=== PATIENT | female | born 1995 | race American Indian/Alaskan Native ===

== ENCOUNTER 2023-06-27 14:45 | Outpatient (CLI) | payer BC, SELFPAY ==
--- NOTE | 2023-06-27 15:00 | CRLHL7_ITS ---
For Patients: As a result of the Cures Act, medical imaging exams and procedure reports are released immediately into your electronic medical record. You may view this report before your referring provider. If you have questions, please contact your health care provider. RIGHT BREAST ULTRASOUND CLINICAL HISTORY: RIGHT breast tenderness. COMPARISON: None. TECHNIQUE: Real-time ultrasound imaging of RIGHT breast with imaging documentation. FINDINGS: Hypoechoic collection of fluid within the medial RIGHT breast measuring 3.7 x 1.1 x 3.2 cm. This is located at 3 o`clock 7 cm from the nipple. No internal vascularity. Surrounding hyperemia. IMPRESSION: Fluid collection/abscess in the medial RIGHT breast measuring 3.7 x 1.1 x 3.2 cm. RECOMMENDATIONS: Dr. Mccain performed aspiration procedure following this exam. BI-RADS Category 2: Benign A lay language report of this examination will be provided to the patient. Dictated by Francisco J Childers MD @ 06/28/2023 9:37:12 AM j/Dictated by: Francisco J Childers MD @ 06/28/2023 9:30:00 AM (Electronically Signed)
== END 2023-06-27 14:46 | disposition home or self-care (01) ==
PROVIDERS: Visit Provider Physician Assistant
DX: N64.4 Mastodynia (principal); N61.1 Abscess of the breast and nipple
CPT/HCPCS: 76642; 76942; 87070

== ENCOUNTER 2023-07-18 10:57 | Outpatient (CLI) | payer BC, SELFPAY ==
--- OUTSIDE RECORDS SUMMARY | 2023-07-18 10:59 | XMS_ITS | Patient Health Record ---
Author Name Unknown Organization [facility] Address [address] [place] [address] Care Team Providers Care Horticultural Nursery Assistant Name Role Phone Mary Camacho Unavailable [phone] ALLERGIES No Known Allergies RESULTS Component Value Reference Range Notes Hemoglobin A1c Reviewed date:11/18/2022 10:40:40 AM Interpretation: Performing Lab: Notes/Report: A1c Hemoglobin 5.5 4.0 - 7.0 % Lipid Panel Reviewed date:11/18/2022 10:40:40 AM Interpretation: Performing Lab: Notes/Report: Cholesterol, Total 186 <200 - mg/dL HDL Cholesterol 49 LDL Cholesterol Calc 119 <100 - mg/dL Triglycerides 86 <150 - mg/dL nHDLc 136 <130 - mg/dL TC/H 3.8 2.8 - 6.6 VLDL Cholesterol Jak Basic Metabolic Panel Reviewed date:11/18/2022 10:40:40 AM Interpretation: Performing Lab: Notes/Report: Glucose, Serum 111 70 - 99 mg/dL BUN 10 10 - 26 mg/dL Calcium, Serum 9.3 8.5 - 10.5 mg/dL Creatinine, Serum 0.7 0.6 - 1.3 mg/dL Sodium, Serum 138 135 - 145 mEq/L Potassium, Serum 4.8 3.5 - 5.3 mEq/L Chloride, Serum 105 95 - 105 mEq/L Carbon Dioxide, Total 28 23 - 29 mEq/L BUN/Creatinine Ratio CBC (H/H, RBC, INDICES, WBC, PLT) Reviewed date:11/19/2022 07:11:34 AM Interpretation: Performing Lab:[facility], [facility] [id number] [id number] Vince Kessler Notes/Report: 0 WHITE BLOOD CELL COUNT 7.0 3.8-10.8 Thousand/ uL RED BLOOD CELL COUNT 4.29 3.80-5.10 Million/uL HEMOGLOBIN 13.4 11.7-15.5 g/dL HEMATOCRIT 38.9 35.0-45.0 % MCV 90.7 80.0-100.0 fL MCH 31.2 27.0-33.0 pg MCHC 34.4 32.0-36.0 g/dL RDW 12.0 11.0-15.0 % PLATELET COUNT 282 140-400 Thousand/uL MPV 11.1 7.5-12.5 fL NO COLLECTION DATE RECEIVED. WE HAVE USED THE DATE THE SPECIMEN WAS RECEIVED BY THIS LABORATORY THE COLLECTION DATE. IF THIS IS INCORRECT, PLEASE CONTACT CLIENT SERVICES. PHONE NUMBER: [phone] REASON FOR REFERRAL No Information SOCIAL HISTORY Tobacco Use: Social History Observation Description Date Details (start date - stop date) Never Smoker NA - NA Sex Assigned At : Social History Observation Description Sex Assigned At Unknown Tobacco Use/Smoking Question Answer Notes Are you a nonsmoker Alcohol Screen (Audit-C) Question Answer Notes Did you have a drink contain ing alcohol in the past year? Yes How often did you have a dri nk containing alcohol in the past year? 2 to 3 times a week (3 points) How many drinks did you have on a typical day when you were drinking in the past year? 3 or 4 drinks (1 point) How often did you have 6 or more drinks on one occasion in the past year? Never (0 point) Points 4 Interpretation Positive VITAL SIGNS Heart Rate 80 /min 11/18/2022 Temperature 97.7 degrees Fahrenheit 11/18/2022 Respiratory Rate 16 /min 11/18/2022 Oximetry 98 % 11/18/2022 Blood pressure diastolic 85 mm Hg 11/18/2022 Height 65 in 11/18/2022 Blood pressure systolic 127 mm Hg 11/18/2022 Weight 199.5 lbs 11/18/2022 BMI 33.19 kg/m2 11/18/2022 Encounters Encounter Location Date Provider Diagnosis [address] [place] [address] 11/18/2022 Mary Doug Encounter for examination for insurance purposes Z02.[address] [place] [address] 11/19/2022 Mary Doug ASSESSMENTS Encounter Date Diagnosis Assessment Notes Treatment Notes Treatment Clinical Notes 11/18/2022 Encounter for examination for insurance purposes (ICD-10 - Z02.6) Routine labs have been drawn today and reviewed with patient prior to leaving the office. CBC will be resulted tomorrow we will call her with those results. She has no health concerns today so I recommend that she follow-up in 1 year for her next [facility] wellness examination sooner if needed. PLAN OF TREATMENT No Information Insurance Providers Payer Name Payer Address Payer Phone Subscriber Number Group Number Insured Name Patient Relationship to Insured Coverage Start Date Coverage End Date [employer] [address] [address] [place] [id number] Helene [place] Self - patient is the insured MEDICAL (GENERAL) HISTORY Medical History History ICD Code Anxiety Surgical History Surgery Date(Month/Year) 09/2018
--- NOTE | 2023-07-18 11:15 | CRLHL7_ITS ---
For Patients: As a result of the Cures Act, medical imaging exams and procedure reports are released immediately into your electronic medical record. You may view this report before your referring provider. If you have questions, please contact your health care provider. RIGHT BREAST ULTRASOUND CLINICAL HISTORY: RIGHT breast abscess. COMPARISON: 06/27/2023. TECHNIQUE: Real-time ultrasound imaging of the RIGHT breast with imaging documentation. FINDINGS: Targeted sonogram RIGHT breast 3 o`clock 7 cm from the nipple performed. In this location there is a complex primarily hypoechoic fluid collection at mid depth measuring 4.6 x 1.4 x 3.3 cm, previously measuring 3.6 x 0.6 x 3.5 cm. No internal vascularity is present. IMPRESSION: Complex fluid collection RIGHT breast 3 o`clock 7 cm from the nipple, mildly increased in size compared to the prior study consistent with phlegmonous tissue/abscess. RECOMMENDATIONS: Surgical referral recommended. BI-RADS Category 2: Benign A lay language report of this examination will be provided to the patient. Dictated by Francisco J Childers MD @ 07/18/2023 12:01:14 PM /Dictated by: Francisco J Childers MD @ 07/18/2023 12:01:00 PM (Electronically Signed)
== END 2023-07-18 10:58 | disposition home or self-care (01) ==
PROVIDERS: Visit Provider Physician Assistant
DX: N61.1 Abscess of the breast and nipple (principal)
CPT/HCPCS: 76642

== ENCOUNTER 2023-07-20 16:00 | Outpatient (CLI) | payer BC, SELFPAY | END 2023-07-20 16:01 | disposition home or self-care (01) | LOC: FRMREF 16:01 | PROVIDERS: Visit Provider Surgery | DX: N61.1 Abscess of the breast and nipple (principal) | CPT/HCPCS: 87070; 87077 ==

== ENCOUNTER 2023-10-27 08:34 | Outpatient (CLI) | payer BC, SELFPAY ==
--- NOTE | 2023-10-27 08:45 | MM_ITS ---
Patient: SWETHA TOBIN Facility:?[facility] Patient ID:?[id number] Site Patient ID:?[id number] Site :?1995 Study:?XRay-Breast Right 3D W/CAD-10/27/2023 9:24:08 AM Ordering Physician:?Not A Local Final Report: DIGITAL DIAGNOSTIC RIGHT MAMMOGRAM USING TOMOSYNTHESIS AND COMPUTER-AIDED DETECTION RIGHT BREAST ULTRASOUND CLINICAL HISTORY: RIGHT breast lump. COMPARISON: Ultrasound 07/18/2023, 06/27/2023. TECHNIQUE: Digital RIGHT mammogram in two projections. Real-time ultrasound imaging of RIGHT breast with imaging documentation. Scanning was performed by both the technologist and the radiologist. BREAST COMPOSITION: The breast is extremely dense, which may limit the sensitivity of mammography. FINDINGS: 3D CC/MLO RIGHT breast mammogram images submitted. Lobular density is present within the medial RIGHT breast corresponding to the area prior infection. No architectural distortion or suspicious calcifications. No adenopathy. Targeted RIGHT breast ultrasound performed. At 3 o`clock 7 cm from the nipple there is a complex hypoechoic fluid collection extending to the skin surface with associated epidermal thickening. This measures 3.6 x 2.6 x 2.9 cm. IMPRESSION: RIGHT breast abscess measuring 3.6 x 2.6 x 2.9 cm extending to the skin surface. RECOMMENDATIONS: Ultrasound-guided drainage will be performed subsequently. Results and recommendations discussed with the patient. BI-RADS Category 2: Benign A lay language report of this examination will be provided to the patient. Dictated by Francisco J Childers MD @ 10/27/2023 10:34:00 AM jj/Dictated by: Francisco J Childers MD @ 10/27/2023 10:34:00 AM Signed by:?Francisco J Childers MD @10/27/2023 12:03:00 PM (Electronic Signature)
--- NOTE | 2023-10-27 09:15 | US_ITS ---
Patient: SWETHA TOBIN Facility:?[facility] Patient ID:?[id number] Site Patient ID:?[id number] Site :?1995 Study:?US-Breast Procedure DR CHILDERS TO READ-10/27/2023 10:04:14 AM Ordering Physician:?VETO HUGGINS Final Report: ULTRASOUND-GUIDED RIGHT BREAST ABSCESS DRAINAGE CLINICAL HISTORY: RIGHT breast abscess. COMPARISON STUDIES: 10/27/2023. TECHNIQUE: Real-time ultrasound with image documentation was used for targeting the breast lesion. Ultrasound-guided abscess aspiration occurred with an 18-gauge needle. CONSENT and TIME OUT: The procedure, risks, and alternatives were explained to the patient and a consent was signed. [place] Protocol was followed including pre-procedure verification that relevant information/documentation was available, reviewed and properly matched to the patient; consent accurate and complete; and equipment and supplies available. Time Out was conducted just prior to starting procedure to verify the four required elements: patient identity, correct side/site marked (if applicable), procedure, relevant images/results properly labeled and displayed (if applicable). PROCEDURE: The patient was positioned supine on the ultrasound table. The breast was prepped with ChloraPrep. 5 cc of 1 percent lidocaine was used for local anesthesia. 12 cc of pus was aspirated from the abscess. No complications occurred. Samples sent to the lab for Gram stain and culture. LATERALITY: RIGHT breast. LESION: Hypoechoic lobular circumscribed fluid collection extending to the epidermal layer measuring 3.6 x 2.9 x 2.7 cm at 3 o`clock 7 cm from the nipple. IMPRESSION: Ultrasound-guided abscess drainage. ACR not applicable Dictated by Francisco J Childers MD @ 10/28/2023 10:35:17 AM jj/Dictated by: Francisco J Childers MD @ 10/28/2023 10:35:00 AM Signed by:?Francisco J Childers MD @10/28/2023 12:16:44 PM (Electronic Signature)
--- NOTE | 2023-10-27 09:15 | US_ITS ---
Patient: SWETHA TOBIN Facility:?[facility] Patient ID:?[id number] Site Patient ID:?[id number] Site :?1995 Study:?US-Breast Right Dr. Childers to read-10/27/2023 9:59:19 AM Ordering Physician:NEY Final Report: PLEASE SEE DIGITAL DIAGNOSTIC RIGHT MAMMOGRAM PERFORMED SAME DAY CRL:pedro vasquez/Dictated by: Francisco J Childers MD @ 10/27/2023 10:34:00 AM Signed by:?Francisco J Childers MD @10/27/2023 12:02:47 PM (Electronic Signature)
== END 2023-10-27 08:35 | disposition home or self-care (01) ==
PROVIDERS: Visit Provider Physician Assistant
DX: N63.10 Unspecified lump in the right breast, unspecified quadrant (principal); N61.1 Abscess of the breast and nipple; L02.91 Cutaneous abscess, unspecified
CPT/HCPCS: 19000; 76642; 76942; 77065; 87070; 87075; 87205; G0279

== ENCOUNTER 2024-04-19 10:56 | Outpatient (CLI) | payer BC, SELFPAY ==
--- OUTSIDE RECORDS SUMMARY | 2024-04-19 11:01 | XMS_ITS | Encounter Summary ---
Author Organization [facility] Address [address] [place] [address] Care Team Providers Care Customer Care Consultant Name Role Phone [facility]- Primary Care Provider Reason for Referral * Consultation (Routine: Next available opening) - Pending Review Specialty Diagnoses / Procedures Referred By Contmoose t Referred To Contact Diagnoses Seizure (H) Mis Chow DO [facility] [place] [address] [facility] [place] [address] Referral ID Status Reason Start Date Expiration Date V isits Requested Visits Authorized [id number] Pending Review 02/25/2024 02/24/2025 1 1 Question Answer Reason for Referral: General Neurology Scheduling Instructions: [facility] will call you to coordinate your care as prescribed by your provider. If you don't hear from a patient relations representative within 2 business days, please call . Comments Please be aware that coverage of these services is subject to the terms and limitations of your health insurance plan. Call member services at your health plan with any benefit or coverage questions. [facility] will call you to coordinate your care as prescribed by your provider. If you don't hear from a patient relations representative within 2 business days, please call . Reason for Visit * Reason Comments Seizures Encounter Details Date Type Department Care Team (Late st Contact Info) Description 02/25/2024 9:42 PM CDT - 02/26/2024 12:01 AM CDT Emergency [facility] Emergency Dept [address] [place] [address] Mis Chow E, DO [facility] [place] [address] [place] [id number] Seizure (H); Alcoholic intoxication without complication (H24); Hypokalemia Discharge Disposition: Home or Self Care Social History Tobacco Use Types Packs/Day Years Used Date Smoking Tobacco: Never Smokeless Tobacco: Never Alcohol Use Standard Drinks/Week Comments Yes 0 (1 standard drink = 0.6 oz pur e alcohol) Adolescent Education Answer Date Record ed Getting School Help Needed Not on file 02/24 Sex and Gender Information Value Date Recorded Sex Assigned at Not on file Gender Identity Not on file Sexual Orientation Not on file documented as of this encounter Last Filed Vital Signs Vital Sign Reading Time Taken Comments Blood Pressure 112/58 02/25/2024 11:40 PM CDT Pulse 84 02/25/2024 11:40 PM CDT Temperature 36.8 ??C (98.3 ??F) 02/25/2024 10:00 PM C DT Respiratory Rate 19 02/25/2024 9:58 PM CDT Oxygen Saturation 97% 02/25/2024 9:58 PM CDT Inhaled Oxygen Concentration - - Weight 83.9 kg (185 lb) 02/25/2024 9:47 PM CDT Height 162.6 cm (5' 4) 02/25/2024 9:47 PM CDT Body Mass Index 31.76 02/25/2024 9:47 PM CDT documented in this encounter Discharge Instructions * Attachments The following attachments cannot be sent through Care Everywhere. * Seizure ([place]) documented in this encounter Medications at Time of Discharge Medication Sig Dispensed Refills Start Date End Date glycerin (LAXATIVE) 1.[address] 1 suppository rectally daily 1 suppository 10/07/2018 ibuprofen (ADVIL/MOTRIN) 800 MG tablet Take 800 mg by mouth 10/05/2018 Nitrofurantoin Macrocrystal (MACRODANTIN PO) oxybutynin (DITROPAN) 5 MG tablet Take 1 tablet (5 mg) by mouth 3 times daily as needed (bladder spasms/urgency) 9 tablet 0 03/04/2016 oxyCODONE (ROXICODONE) 5 MG tablet Take 5-10 mg by mouth 10/05/2018 senna-docusate (SENOKOT-S/PERICOLACE ) 8.6-50 MG tablet Take 1 tablet by mouth 10/05/2018 documented as of this encounter ED Notes * Cayla Wong RN - 02/25/2024 9:48 PM CDT Brought in by EMS. Was out with friends for dinner. Had 30 seconds of seizure like activity with LOC. Vomited after. Had 2 drinks at dinner and endorses cannabis use earlier in the day. Denies pain. VSS. No head injury. No hx seizures. * Monty Allen RN - 02/25/2024 9:42 PM CDT Bed: ED14 Expected date: Expected time: Means of arrival: Comments: BV4 * Mis Chow DO - 02/25/2024 9:42 PM CDT Emergency Department Note History of Present Illness Chief Complaint Seizures HPI Helene Mullins is a 28 year old female presenting with concerns for a seizure. Patient reports having a girls night this evening and had 2 beers at dinner around 5PM. She reports feeling lightheaded after dinner and then friends noted she had roughly a 30 second tonic clonic seizure. No head trauma. No bladder/bowel incontinence or tongue lacerations. She was post-ictal for a few minutes after this episode and had an episode of emesis. No headache, vision changes, chest pain, dyspnea, abdominal pain, focal weakness, paresthesias. Patient denies history of seizures. No drug use. She reports history of 2 alcoholic beverages daily though denies history alcohol withdrawal. Mother at bedsidedenies patient being confused. Patient admits to significant anxiety at bedside and is quite tearful. Independent Historian None Review of External Notes None Past Medical History Medical History and Problem List UTI Medications Glycerin Macrodantin Ditropan Roxicodone Senokot Vicodin Surgical History section Nasal septum surgery Physical Exam Patient Vitals for the past 24 hrs: BP Temp Temp src Pulse Resp SpO2 Height Weight 02/25/24 2340 112/58 -- -- 84 -- -- -- -- 02/25/24 2200 -- 98.3 ??F (36.8 ??C) Axillary -- -- -- -- -- 02/25/24 2158 -- -- -- 90 19 97 % -- -- 02/25/24 2147 123/85 -- -- 87 24 -- 1.626 m (5' 4) 83.9 kg (185 lb) Physical Exam General: Well-nourished, nontoxic Eyes: PERRL, EOMI, no nystagmus. No scleral icterus or conjunctival injection. ENT: Moist mucus membranes, posterior oropharynx clear. No tongue lacerations Neck: Supple with full range of motion Respiratory: Lungs clear to auscultation bilaterally, no crackles/rubs/wheezes. Good air movement CV: Normal rate and rhythm GI: Abdomen soft and non-distended. No tenderness, guarding or rebound Skin: Warm, dry. No rashes or petechiae MSK: No peripheral edema or calf tenderness Neuro: Alert. No aphasia/facial droop/dysarthria. Tongue midline, normal strength at SCM/trapezius/BUE/BLE. Normal finger to nose. Sensation intact over face/BUE/BLE Psychiatric: Anxious appearing Diagnostics Lab Results Labs Ordered and Resulted from Time of ED Arrival to Time of ED Departure COMPREHENSIVE METABOLIC PANEL - Abnormal Result Value Sodium 137 Potassium 3.3 (*) Carbon Dioxide (CO2) 21 (*) Anion Gap 14 Urea Nitrogen 8.3 Creatinine 0.91 GFR Estimate 87 Calcium 8.6 (*) Chloride 102 Glucose 107 (*) Alkaline Phosphatase 76 AST 40 ALT 43 Protein Total 6.8 Albumin 4.0 Bilirubin Total 0.2 ETHYL ALCOHOL LEVEL - Abnormal Alcohol ethyl 0.11 (*) GLUCOSE BY METER - Abnormal GLUCOSE BY METER POCT 133 (*) HCG QUALITATIVE - Normal hCG Serum Qualitative Negative CBC WITH PLATELETS AND DIFFERENTIAL WBC Count 8.0 RBC Count 3.83 Hemoglobin 11.8 Hematocrit 35.5 MCV 93 MCH 30.8 MCHC 33.2 RDW 12.2 Platelet Count 247 % Neutrophils 52 % Lymphocytes 36 % Monocytes 8 % Eosinophils 3 % Basophils 1 % Immature Granulocytes 1 NRBCs per 100 WBC 0 Absolute Neutrophils 4.2 Absolute Lymphocytes 2.9 Absolute Monocytes 0.7 Absolute Eosinophils 0.2 Absolute Basophils 0.0 Absolute Immature Granulocytes 0.0 Absolute NRBCs 0.[address] w/o contrast Final Result IMPRESSION: 1. Normal head CT. EKG ECG taken at 2208, ECG read at 2208 Normal sinus rhythm Rate 93 bpm. OK interval 148 ms. QRS duration 82 ms. QT/QTc 380/472 ms. P-R-T axes 48 73 39. Independent Interpretation I independently reviewed the head CT and no intracranial hemorrhage ED Course Medications Administered Medications ondansetron (ZOFRAN) injection 4 mg (4 mg Intravenous $Given 02/25/242237) LORazepam (ATIVAN) injection 0.5 mg (0.5 mg Intravenous $Given 02/25/242226) potassium chloride brenda ER (KLOR-CON M20) CR tablet 40 mEq (40 mEq Oral $Given 02/25/244) Discussion of Management None ED Course ED Course as of 02/26/24 0712 Sat Feb 25, [id number] I obtained history and examined the patient as noted above. 2349 I rechecked and updated the patient. Optional/Additional Documentation None Medical Decision Making / Diagnosis [facility] Diagnoses: None MIPS None MDM Helene Mullins is a 28 year old female for seizure. ABCs were intact on presentation and there was no sign of trauma and no need for c-spine precautions based on history and presentation. No focal neuro deficits on arrival. This is a first time seizure with complete recovery and no abnormal findings on workup. CT head negative. No profound electrolyte derangements. She is not . Unfortunately a clear exam and results today do not ensure freedom from a severe disease process in the future-- even within hours, orthe possibility that there is a dangerous process currently at work but currently undetected or undiagnosed, this was clearly conveyed to the patient/family. For this reason the patient is advised toseek immediate re-evaluation in the the ED if there is a worsening of their condition such as headache, altered mental status, or another seizure, and to followup with PCP. Neurology referral placed. Disposition The patient was discharged. Diagnosis ICD-10-CM 1. Seizure (H) R56.9 Adult Neurology Paper Coater Referral 2. Alcoholic intoxication without complication (H24) F10.920 3. Hypokalemia E87.6 Discharge Medications New Prescriptions No medications on file Scribe Disclosure: LEWIS Macias, am serving as a scribe at 10:26 PM on 02/25/2024 to document services personally performed by Mis Chow DO based on my observations and the provider's statements to me. Mis Chow DO 02/26/24 0715 documented in this encounter Plan of Treatment Scheduled Referrals Name Type Priority Associated Diagnoses Orde r Schedule Adult Neurology Paper Coater Referral Referral Routine: Next available opening Seizure (H) Expected: 02/25/2024 (Approximate), Expires: 02/24/2025 documented as of this encounter Procedures Procedure Name Priority Date/Time Associated Diagnosis Comments CT HEAD W/O CONTRAST STAT 02/25/2024 11:21 PM CDT HCG QUALITATIVE STAT 02/25/2024 10:40 PM CDT GLUCOSE BY METER STAT 02/25/2024 10:1 4 PM CDT EKG 12-LEAD, TRACING ONLY STAT 02/25/2024 10:08 PM CDT CBC WITH PLATELETS AND DIFFERENTIAL STAT 02/25/2024 10:03 PM CDT CBC WITH PLATELETS & DIFFERENTIAL STAT 02/25/2024 10:03 PM CDT COMPREHENSIVE METABOLIC PANEL STAT 02/25/2024 10:03 PM CDT ETHYL ALCOHOL LEVEL STAT 02/25/2024 1 0:03 PM CDT documented in this encounter Results * Head CT w/o contrast (02/25/2024 11:21 PM CDT) Anatomical Region Laterality Modality Head, SUBRAD CT NEURO, SUBRA D CT NEURO, UMP CT NEURO, RAD CT Computed Tomography 02/25/2024 11:2 1 PM CDT Impressions 02/25/2024 11:29 PM CDT IMPRESSION: 1. ??Normal head CT. Narrative 02/25/2024 11:29 PM CDT EXAM: CT HEAD W/O CONTRAST LOCATION: [facility] DATE: 02/25/2024 INDICATION: Seizure. COMPARISON: None. TECHNIQUE: Routine CT Head without IV contrast. Multiplanar reformats. Dose reduction techniques were used. FINDINGS: INTRACRANIAL CONTENTS: No intracranial hemorrhage, extraaxial collection, or mass effect. ??No CT evidence of acute infarct. Normal parenchymal attenuation. Normal ventricles and sulci. VISUALIZED ORBITS/SINUSES/MASTOIDS: No intraorbital abnormality. No paranasal sinus mucosal disease. No middle ear or mastoid effusion. BONES/SOFT TISSUES: No acute abnormality. Procedure Note Chun Jung MD - 02/25/2024 EXAM: CT HEAD W/O CONTRAST LOCATION: [facility] DATE: 02/25/2024 INDICATION: Seizure. COMPARISON: None. TECHNIQUE: Routine CT Head without IV contrast. Multiplanar reformats.Dose reduction techniques were used. FINDINGS: INTRACRANIAL CONTENTS: No intracranial hemorrhage, extraaxial collection,or mass effect. No CT evidence of acute infarct. Normal parenchymalattenuation. Normal ventricles and sulci. VISUALIZED ORBITS/SINUSES/MASTOIDS: No intraorbital abnormality. Noparanasal sinus mucosal disease. No middle ear or mastoid effusion. BONES/SOFT TISSUES: No acute abnormality. IMPRESSION: 1. Normal head CT. Mis Chow DO [facility] CT ORDERABLES * HCG QUALitative (blood) (02/25/2024 10:40 PM CDT) hCG Serum Qualitative Negative Negative EDNA 02/25/2024 11:21 PM CDT [facility] Comment:This test is for scr eening purposes. Results should be interpreted along with the clinical picture. Confirmation testing is available if warranted by ordering [id number], HCG Quantitative . Blood VENOUS LINE / Unknown Venipuncture / Unknown 02/25/2024 10:40 PM CDT 02/25/2024 10:44 PM CDT Mis Chow DO LAB - BLOOD ORDERA BLES [facility] Emergency Department Lab [address] Lab (1st floor, no room number) [place] [phone] * (ABNORMAL) Glucose by meter (02/25/2024 10:14 PM CDT) GLUCOSE BY METER POCT 133(H) 70 - 99 mg/dL 02/25/2024 10:21 PM CDT LABORATORY POC Comment:Dr/RN Notified Blood, Capillary BLOOD SPECIMEN / Unknown 02/25/2024 10:14 PM CDT 02/25/2024 10:21 PM CDT Mis Chow DO LAB - BEAKER POCT Performing Organization Address [facility]/ZIP Co de Phone Number LABORATORY POC [facility] Lab [address] Lab (1st floor, no room number) [place] [phone] * EKG 12-lead, tracing only (02/25/2024 10:08 PM CDT) Systolic Blood Pressure mmHg RADIOLOGY RESULTS Diastolic Blood Pressure mmHg RADIOLOGY RESULTS Ventricular Rate 93 BPM RAD IOLOGY RESULTS Atrial Rate 93 BPM RADIOLOG Y RESULTS OK Interval 148 ms RADIOLOG Y RESULTS QRS Duration 82 ms RADIOLO GY RESULTS QT 380 ms RADIOLOGY RESULTS QTc 472 ms RADIOLOGY RESULTS P Forman 48 degrees RADIOLOGY RESULTS R AXIS 73 degrees RADIOLOGY RESULTS T Forman 39 degrees RADIOLOGY RESULTS Interpretation ECG Sinus rhythm Normal ECG No previous ECGs available RADIOLOGY RESULTS 02/25/2024 10:0 8 PM CDT Mis Chow DO ECG ORDERABLES RADIOLOGY RESULTS * CBC with platelets and differential (02/25/2024 10:03 PM CDT) WBC Count 8.0 4.0 - 11.0 10e3/uL 02/25/2024 10:12 PM CDT [facility] RBC Count 3.83 3.80 - 5.20 10e6/uL 02/25/2024 10:12 PM CDT [facility] Hemoglobin 11.8 11.7 - 15.7 g/dL 02/25/2024 10:12 PM CDT [facility] Hematocrit 35.5 35.0 - 47.0 % 02/25/2024 10:12 PM CDT [facility] MCV 93 78 - 100 fL 02/25/2024 10:12 PM CDT [facility] MCH 30.8 26.5 - 33.0 pg 02/25/2024 10:12 PM CDT [facility] MCHC 33.2 31.5 - 36.5 g/dL 02/25/2024 10:12 PM CDT [facility] RDW 12.2 10.0 - 15.0 % 02/25/2024 10:12 PM CDT [facility] Platelet Count 247 150 - 450 10e3/uL 02/25/2024 10:12 PM CDT [facility] % Neutrophils 52 % 02/25/2024 10:12 PM CDT [facility] % Lymphocytes 36 % 02/25/2024 10:12 PM CDT [facility] % Monocytes 8 % 02/25/2024 10:12 PM CDT [facility] % Eosinophils 3 % 02/25/2024 10:12 PM CDT [facility] % Basophils 1 % 02/25/2024 10:12 PM CDT [facility] % Immature Granulocytes 1 % 02/25/2024 10:12 PM CDT [facility] NRBCs per 100 WBC 0 <1 /100 024 10:12 PM CDT [facility] Absolute Neutrophils 4.2 1.6 - 8.3 10e3/uL 02/25/2024 10:12 PM CDT [facility] Absolute Lymphocytes 2.9 0.8 - 5.3 10e3/uL 02/25/2024 10:12 PM CDT [facility] Absolute Monocytes 0.7 0.0 - 1.3 10e3/uL 02/25/2024 10:12 PM CDT [facility] Absolute Eosinophils 0.2 0.0 - 0.7 10e3/uL 02/25/2024 10:12 PM CDT [facility] Absolute Basophils 0.0 0.0 - 0.2 10e3/uL 02/25/2024 10:12 PM CDT [facility] Absolute Immature Granulocytes 0.0 <=0.4 10e3/uL 02/25/2024 10:12 PM CDT [facility] Absolute NRBCs 0.0 10e3/uL 02/25/2024 10:12 PM CDT [facility] Blood BLOOD SPECIMEN / Unknown Venipuncture / Unknown 02/25/2024 10:03 PM CDT 02/25/2024 10:08 PM CDT Mis Chow DO LAB - BLOOD ORDERA BLES LABORAT[facility] Lab [address] Lab (1st floor, no room number) [address] * (ABNORMAL) Alcohol level blood (02/25/2024 10:03 PM CDT) Alcohol ethyl 0.11(H) <=0.01 g/dL 02/25/2024 10:38 PM CDT [facility] Blood BLOOD SPECIMEN / Unknown Venipuncture / Unknown 02/25/2024 10:03 PM CDT 02/25/2024 10:08 PM CDT Mis Chow DO LAB - BLOOD ORDERA BLES LAB[facility]AT[facility] Lab [address] Lab (1st floor, no room number) [address] * (ABNORMAL) Comprehensive metabolic panel (02/25/2024 10:03 PM CDT) Sodium 137 135 - 145 mmol/L 02/25/2024 10:38 PM CDT LABORATORY Potassium 3.3(L) 3.4 - 5.3 mmol/L 02/25/2024 10:38 PM CDT [facility] Carbon Dioxide (CO2) 21(L) 22 - 29 mmol/L 02/25/2024 10:38 PM CDT [facility] Anion Gap 14 7 - 15 mmol/L 02/25/2024 10:38 PM CDT LABORATORY Urea Nitrogen 8.3 6.0 - 20.0 mg/dL 02/25/2024 10:38 PM CDT [facility] Creatinine 0.91 0.51 - 0.95 mg/dL 02/25/2024 10:38 PM CDT [facility] GFR Estimate 87 >60 mL/min/1.7 3m2 02/25/2024 10:38 PM CDT [facility] Comment:eGFR calculated us2020 CKD-EPI equation. Calcium 8.6(L) 8.8 - 10.4 mg/dL 02/25/2024 10:38 PM CDT [facility] Comment:Reference intervals for this test were updated on 02/21/2024 to reflect our healthy population more accurately. There may be differences in the flagging of prior results with similar values performed with this method. Those prior results can be interpreted in the context of the updated reference intervals. Chloride 102 98 - 107 mmol/L 02/25/2024 10:38 PM CDT [facility] Glucose 107(H) 70 - 99 mg/dL 02/25/2024 10:38 PM CDT [facility] Alkaline Phosphatase 76 40 - 150 U/L 02/25/2024 10:38 PM CDT [facility] AST 40 0 - 45 U/L 02/25/2024 10:38 PM CDT [facility] ALT 43 0 - 50 U/L 02/25/2024 10:38 PM CDT [facility] Protein Total 6.8 6.4 - 8.3 g/dL 02/25/2024 10:38 PM CDT [facility] Albumin 4.0 3.5 - 5.2 g/dL 02/25/2024 10:38 PM CDT [facility] Bilirubin Total 0.2 <=1.2 mg/dL 02/25/2024 10:38 PM CDT [facility] Blood BLOOD SPECIMEN / Unknown Venipuncture / Unknown 02/25/2024 10:03 PM CDT 02/25/2024 10:08 PM CDT Mis Chow DO LAB - BLOOD ORDERA BLES [facility] Lab [address] Lab (1st floor, no room number) [place] [address], [facility] documented in this encounter Visit Diagnoses Diagnosis Seizure (H) Other convulsions Alcoholic intoxication without complication (H24) Hypokalemia Hypopotassemia documented in this encounter Administered Medications Inactive Administered Medications - up to 3 most recent administrations Medication Order MAR Action Action Date Dose Rate Site LORazepam (ATIVAN) injection 0.5 mg 0.5 mg, Intravenous, ONCE, On 02/25/24 at 2220, For 1 dose, IV Route: Dilute with equal volume NS prior to use. This drug may cause significant respiratory depression. Monitor respiratory status and vital signs carefully for 1 hour after each dose. $Given 02/25/2024 10:27 PM CDT 0.5 mg ondansetron (ZOFRAN) injection 4 mg 4 mg, Intravenous, ONCE, Administer over 2-5 Minutes, On 02/25/24 at 2220, For 1 dose $Given 02/25/2024 10:38 PM CDT 4 mg potassium chloride brenda ER (KLOR-CON M20) CR tablet 40 mEq 40 mEq, Oral, ONCE, On 02/25/24 at 2340, For 1 dose, DO NOT CRUSH $Given 02/25/2024 11:44 PM CDT 40 mEq documented in this encounter Active and Recently Administered Medications Times are shown in CDT. Scheduled Medication Order 02/24/2024 02/25/2024 02/26/2024 LORazepam (ATIVAN) injection 0.5 mg (COMPLETED) 0.5 mg, Intravenous, ONCE, On 02/25/24 at 2220, For 1 dose, IV Route: Dilute with equal volume NS prior to use. This drug may cause significant respiratory depression. Monitor respiratory status and vital signs carefully for 1 hour after each dose. 2226 ($Given - Provider: Jeanna Wong RN) ondansetron (ZOFRAN) injection 4 mg (COMPLETED) 4 mg, Intravenous, ONCE, Administer over 2-5 Minutes, On 02/25/24 at 2220, For 1 dose 2237 ($Given - Provider: Jeanna Wong RN) potassium chloride brenda ER (KLOR-CON M20) CR tablet 40 mEq (COMPLETED) 40 mEq, Oral, ONCE, On 02/25/24 at 2340, For 1 dose, DO NOT CRUSH 2343 ($Given - Provider: Jeanna Wong RN) documented in this encounter Care Teams Customer Care Consultant Relationship Specialty Start Date End Date [facility] [address] [place] [address] PCP - General 10/07/18 documented as of this encounter
--- OUTSIDE RECORDS SUMMARY | 2024-04-19 11:01 | XMS_ITS | Referral Summary ---
Author Organization [facility] Address [address] [place] [address] Care Team Providers Care Property Appraiser Name Role Phone [facility]- Primary Care Provider Encounters Date Type Department Care Team Description 02/25/2024 9:42 PM CDT - 02/26/2024 12:01 AM CDT Emergency [facility] Emergency Dept [address] [place] [address] Mis Chow, Seizure (H); Alcoholic intoxication without complication (H24); Hypokalemia Discharge Disposition: Home or Self Care 02/25/2024 Travel from Last 3 Months Allergies Active Allergy Reactions Criticality Noted Date Comments No Known Drug Allergy 05/28/2002 Medications Medication Sig Dispensed Refills Start Date End Date Status Nitrofurantoin Macrocrystal (MACRODANTIN PO) Active oxybutynin (DITROPAN) 5 MG tablet Take 1 tablet (5 mg) by mouth 3 times daily as needed (bladder spasms/urgency) 9 tablet 0 03/04/2016 Active ibuprofen (ADVIL/MOTRIN) 800 MG tablet Take 800 mg by mouth 10/05/2018 Active oxyCODONE (ROXICODONE) 5 MG tablet Take 5-10 mg by mouth 10/05/2018 Active senna-docusate (SENOKOT-S/PERICOL PAZ) 8.6-50 MG tablet Take 1 tablet by mouth 10/05/2018 Active glycerin (LAXATIVE) 1.[address] 1 suppository rectally daily 1 suppository 10/07/2018 Active Active Problems Problem Noted Date Diagnosed Date 09/30/2018 Immunizations Name Administration Dates Next Due DTAP (<7y) 02/19/1999,02/16/1995 HIB (PRP-T) 11/25/1994 HepB 05/14/1994,1993,1993 Influenza (IIV3) PF 05/10/1997 MMR 02/19/1999,11/25/1994 OPV, trivalent, live 02/19/1999,02/16/1995,12/15,1993 Tetramune (DtP/HIB) 02/11/1994,1993,1993 Varicella 08/23/1995 Social History Tobacco Use Types Packs/Day Years [...] on file Sexual Orientation Not on file Last Filed Vital Signs Vital Sign Reading [...] Mass Index 31.76 02/25/2024 9:47 PM CDT Plan of Treatment Not on file Procedures Procedure Name Priority Date/Time Associated Diagnosis Comments CT HEAD W/O CONTRAST STAT 02/25/2024 11:21 PM CDT HCG QUALITATIVE STAT 02/25/2024 10:40 PM CDT GLUCOSE BY METER STAT 02/25/2024 10:1 4 PM CDT EKG 12-LEAD, TRACING ONLY STAT 02/25/2024 10:08 PM CDT CBC WITH PLATELETS & DIFFERENTIAL STAT 02/25/2024 10:03 PM CDT CBC WITH PLATELETS AND DIFFERENTIAL STAT 02/25/2024 10:03 PM CDT ETHYL ALCOHOL LEVEL STAT 02/25/2024 1 0:03 PM CDT COMPREHENSIVE METABOLIC PANEL STAT 02/25/2024 10:03 PM CDT from Last 3 Months Results * Head CT w/o contrast (02/25/2024 11:21 PM CDT) Anatomical Region Laterality Modality Head, SUBRAD CT NEURO, SUBRA D CT NEURO, UMP CT NEURO, RAD CT Computed Tomography 02/25/2024 11:2 1 PM CDT Impressions 02/25/2024 11:29 PM CDT IMPRESSION: 1. ??Normal head CT. Narrative 02/25/2024 11:29 PM CDT EXAM: CT HEAD W/O CONTRAST LOCATION: [facility] DATE: 02/25/2024 INDICATION: Seizure. COMPARISON: None. TECHNIQUE: [...] 02/25/2024 EXAM: CT HEAD W/O CONTRAST LOCATION: [facility] DATE: 02/25/2024 INDICATION: Seizure. COMPARISON: None. TECHNIQUE: [...] 1. Normal head CT. Mis Chow DO IMG CT ORDERABLES * HCG QUALitative (blood) (02/25/2024 10:40 PM CDT) hCG Serum Qualitative Negative Negative EDNA 02/25/2024 11:21 PM CDT LABORATORY Comment:This test is for scr eening purposes. Results should be interpreted along with the clinical picture. Confirmation testing is available if warranted by ordering [id number], HCG Quantitative . Blood VENOUS LINE / Unknown Venipuncture / Unknown 02/25/2024 10:40 PM CDT 02/25/2024 10:44 PM CDT Mis Chow DO LAB - BLOOD ORDERA BLES Performing Organization Address City/[facility]/ZIP Co de Phone Number [facility] Lab [address] Lab (1st floor, no room number) [address], [facility] * (ABNORMAL) Glucose by meter (02/25/2024 10:14 PM CDT) GLUCOSE BY METER POCT 133(H) 70 - 99 mg/dL 02/25/2024 10:21 PM CDT LABORATORY POC Comment:Dr/RN Notified Blood, Capillary BLOOD SPECIMEN / Unknown 02/25/2024 10:14 PM CDT 02/25/2024 10:21 PM CDT Mis Chow DO LAB - BEAKER POCT LABORATORY [facility] Lab [address] Lab (1st floor, no room number) [place] [phone] [place] [address] * EKG 12-lead, tracing only (02/25/2024 10:08 PM CDT) Systolic Blood Pressure mmHg RADIOLOGY RESULTS Diastolic Blood Pressure mmHg RADIOLOGY RESULTS Ventricular Rate 93 BPM RAD IOLOGY RESULTS Atrial Rate 93 BPM RADIOLOG Y RESULTS DC Interval 148 ms RADIOLOG Y RESULTS QRS Duration 82 ms RADIOLO GY RESULTS QT 380 ms RADIOLOGY RESULTS QTc 472 ms RADIOLOGY RESULTS P [place] 48 degrees RADIOLOGY RESULTS R AXIS 73 degrees RADIOLOGY RESULTS T [place] 39 degrees RADIOLOGY RESULTS Interpretation ECG Sinus [...] DO LAB - BLOOD ORDERA BLES LABORATORY [facility] Lab [address] [facility] Lab (1st floor, no room number) [place] [address], [facility] * (ABNORMAL) Comprehensive metabolic panel (02/25/2024 10:03 PM CDT) Sodium 137 135 - 145 mmol/L 02/25/2024 10:38 PM CDT RH LABORATORY Potassium 3.3(L) 3.4 - 5.3 mmol/L 02/25/2024 10:38 PM CDT LABORATORY Carbon Dioxide (CO2) 21(L) 22 - 29 mmol/L 02/25/2024 10:38 PM CDT LABORATORY Anion Gap 14 7 - 15 mmol/L 02/25/2024 10:38 PM CDT RH LABORATORY Urea Nitrogen 8.3 6.0 - 20.0 [...] - 5.2 g/dL 02/25/2024 10:38 PM CDT LABORATORY Bilirubin Total 0.2 <=1.2 mg/dL 02/25/2024 10:38 PM CDT RH LABORATORY Blood BLOOD SPECIMEN / Unknown Venipuncture / Unknown 02/25/2024 10:03 PM CDT 02/25/2024 10:08 PM CDT Mis Chow DO LAB - BLOOD ORDERA BLES LABORATORY [facility] Lab [address] [facility] Lab (1st floor, no room number) [place] [address] * (ABNORMAL) Alcohol level blood (02/25/2024 10:03 PM CDT) Alcohol ethyl 0.11(H) <=0.01 g/dL 02/25/2024 10:38 PM CDT RH LABORATORY Blood BLOOD SPECIMEN / Unknown Venipuncture / Unknown 02/25/2024 10:03 PM CDT 02/25/2024 10:08 PM CDT Mis Chow DO LAB - BLOOD ORDERA BLES LABORATORY [facility] [address] [facility] ([facility] floor, no room number) [place] [address] from Last 3 Months Care Teams Property Appraiser Relationship Specialty Start Date End Date [facility]- [address] [place], [place] [id number] PCP - General 10/07/18
--- OUTSIDE RECORDS SUMMARY | 2024-04-19 11:01 | XMS_ITS | Patient Health Record ---
Author Organization [facility] Address [address] [place] [address] Care Team Providers Care Tank Truck Engine Mechanic Name Role Phone Adriana Ruiz Unavailable [phone] ALLERGIES No Known Allergies RESULTS Component Value Reference Range Notes Hemoglobin A1c Reviewed date:11/24/2023 10:51:07 AM Interpretation: Performing Lab: Notes/Report: A1c Hemoglobin 5.4 4.0 - 7.0 % Lipid Panel Reviewed date:11/24/2023 10:51:07 AM Interpretation: Performing Lab: Notes/Report: Cholesterol, Total 197 <200 - mg/dL HDL Cholesterol 50 LDL Cholesterol Calc 131 <100 - mg/dL Triglycerides 77 <150 - mg/dL nHDLc 147 <130 - mg/dL TC/H 3.9 2.8 - 6.6 VLDL Cholesterol Jak Basic Metabolic Panel Reviewed date:11/24/2023 10:51:08 AM Interpretation: Performing Lab: Notes/Report: Glucose, Serum 110 70 - 99 mg/dL BUN 8 10 - 26 mg/dL Calcium, Serum 9.6 8.5 - 10.5 mg/dL Creatinine, Serum 0.9 0.6 - 1.3 mg/dL Sodium, Serum 141 135 - 145 mEq/L Potassium, Serum 4.1 3.5 - 5.3 mEq/L Chloride, Serum 104 95 - 105 mEq/L Carbon Dioxide, Total 30 23 - 29 mEq/L BUN/Creatinine Ratio CBC (H/H, RBC, INDICES, WBC, PLT) Reviewed date:11/25/2023 04:31:08 PM Interpretation: Performing Lab:CB, [facility] [id number], [id number] Vince Kessler Notes/Report: 0 WHITE BLOOD CELL COUNT 5.6 3.8-10.8 Thousand/ uL RED BLOOD CELL COUNT 4.59 3.80-5.10 Million/uL HEMOGLOBIN 14.4 11.7-15.5 g/dL HEMATOCRIT 42.7 35.0-45.0 % MCV 93.0 80.0-100.0 fL MCH 31.4 27.0-33.0 pg MCHC 33.7 32.0-36.0 g/dL RDW 12.4 11.0-15.0 % PLATELET COUNT 292 140-400 Thousand/uL MPV 11.4 7.5-12.5 fL REASON FOR REFERRAL No Information SOCIAL HISTORY [...] 4 Interpretation Positive VITAL SIGNS Heart Rate 60 /min 11/24/2023 Temperature 97.8 degrees Fahrenheit 11/24/2023 Respiratory Rate 14 /min 11/24/2023 Oximetry 99 % 11/24/2023 Blood pressure diastolic 79 mm Hg 11/24/2023 Height 65 in 11/24/2023 Blood pressure systolic 125 mm Hg 11/24/2023 Weight 192 lbs 11/24/2023 BMI 31.95 kg/m2 11/24/2023 Encounters Encounter Location Date Provider Diagnosis [address] [place] [address] 11/24/2023 Adriana Ruiz Encounter for examination for insurance purposes Z02.6 ASSESSMENTS Encounter Date Diagnosis Assessment Notes Treatment Notes Treatment Clinical Notes 11/24/2023 Encounter for examination for insurance purposes (ICD-10 - Z02.6) Discussed labs in clinic today. Recommended replacing heavy meals with fish, olive oils, avocado, coconut oils, and vegetables once or twice weekly to increase HDL and lower LDL. Continue to exercise regularily. Discussed mental health and anxiety. Recommended she avoid red bull drinks. If she would like to discuss options for anxiety treatment she is welcome to schedule an appointment anytime for this. Will notify if CBC results are abnormal. Follow up as needed or in 1 year. PLAN OF TREATMENT No Information Insurance Providers Payer Name Payer Address Payer Phone Subscriber Number Group Number Insured Name Patient Relationship to Insured Coverage Start Date Coverage End Date [employer] [address] [address] JUDY Briseno [id number] Helene Mullins Self - patient is the insured MEDICAL (GENERAL) HISTORY Medical History History ICD Code Anxiety Surgical History Surgery Date(Month/Year) 09/2018
--- OUTSIDE RECORDS SUMMARY | 2024-04-19 11:01 | XMS_ITS | Encounter Summary ---
Author Organization [facility] Address [address] [place] [address] Care Team Providers Care Community Relations Coordinator Name Role Phone [facility]- Primary Care Provider Encounter Details Date Type Department Care Team (Latest Contact Info) Description 02/25/2024 Travel Social History Tobacco Use Types Packs/Day Years [...] on file documented as of this encounter Plan of Treatment Not on file documented as of this encounter Visit Diagnoses Not on filedocumented in this encounter Care Teams Community Relations Coordinator Relationship Specialty Start Date End Date [facility]- [address] [place] [address] PCP - General 10/07/18 documented as of this encounter
--- OUTSIDE RECORDS SUMMARY | 2024-04-19 11:01 | XMS_ITS | Clinical Summary ---
Author Organization [facility] Address [place], [place] [address] Care Team Providers Care Barmaid Name Role Phone Pcp, No Unavailable Unavailable Allergies No known active allergies Medications Medication Sig Dispensed Refills Start Date End Date Status ORDER - MEDICATION ORDER COMPOSER Mom reports patient takes one pill for acne. She does not recall the name or dose of the medication Active HYDROcodone-acetam inophen, 5-500 mg, (VICODIN) Tab tablet Take 1-2 tablets by mouth every 6 hours if needed for Pain. Max acetaminophen dose: 4000mg in 24 hrs. 15 tablet 0 09/17/2011 Active Social History Tobacco Use Types Packs/Day Years Used Date Smoking Tobacco: Never Smokeless Tobacco: Never Alcohol Use Standard Drinks/Week Comments No 0 (1 standard drink = 0.6 oz pur e alcohol) Sex and Gender Information Value Date Recorded Sex Assigned at Not on file Gender Identity Not on file Sexual Orientation Not on file Obstetrics History Last Filed Vital Signs Vital Sign Reading Time Taken Comments Blood Pressure 129/75 04/23/2021 11:55 AM CDT Pulse 106 04/23/2021 11:55 AM CDT Temperature 37.1 ??C (98.7 ??F) 04/23/2021 11:55 AM C DT Respiratory Rate 20 04/23/2021 11:55 AM CDT Oxygen Saturation 97% 04/23/2021 11:55 AM CDT Inhaled Oxygen Concentration - - Weight 54.4 kg (120 lb) 09/17/2011 8:39 PM FOOD AND BEVERAGE CONTROLLER Height 162.6 cm (5' 4) 09/17/2011 8:39 PM FOOD AND BEVERAGE CONTROLLER Body Mass Index 20.6 09/17/2011 8:39 PM FOOD AND BEVERAGE CONTROLLER Plan of Treatment Health Maintenance Due Date Last Done Comments Tdap 2004 Depression screening for age 12+ 2005 HIV for age 15-65 2008 BMI (ht and wt on same day) for age 18+ 2011 Hepatitis C screening for ag e 18-79 2011 Tetanus booster 2013 Pap test for age 21-65 04/25/2020 04/25/2017 COVID-19 vaccine series (2022- season) 2024 Influenza for age 9-49 04/08/2024 Pneumococcal series for age 6-64 Aged Out No longer eligible based on patient's age to complete this topic Procedures Procedure Name Priority Date/Time Associated Diagnosis Comments JEWELLERY DESIGNER THIN PREP PAP SCREEN IMAGED Routine 04/25/2017 12:00 PM CDT from Last 3 Months or Most Recently Relevant to Health Maintenance Results * JEWELLERY DESIGNER THIN PREP PAP SCREEN IMAGED (04/25/2017 12:00 PM CDT) Case Report Gynecologic Cytology Report ? Case: [id number] ? Authorizing Provider: ??Chelsie Zuñiga PA-C ?Collected: ? 04/25/2017 1200 ? First Screen: ?Tevin Ramirez ?Received: ?04/26/2017 1237 ? Specimen: ?JEWELLERY DESIGNER ThinPrep Vial Screening, Cervical/Vaginal ? 05/03/2017 10:40 AM CDT Machine Safety Manangement [facility] INTERPRETATION/ RESULT NEGATIVE FOR INTRAEPITHELIAL LESION OR MALIGNANCY (NIL) (none) 05/03/2017 10:40 AM CDT [facility] IMEN ADEQUACY Satisfactory for evaluation Endocervical component present 05/03/2017 10:40 AM CDT [facility] HPV REQUEST HPV if ASCUS 05/03/2017 10:40 AM CDT [facility] Date of LMP 04/12/2017 05/03/2017 10:40 AM CDT [facility] Last Pap Date 04/18/2017 05/03/2017 10:40 AM CDT [facility] Last Pap Result NIL 7 10:40 AM CDT [facility] Automated Review Successful 05/03/2017 10:40 AM CDT [facility] [employer] [facility] Comment:Specimen processed s uccessfully by automated manager inspection device, ThinPrep Imaging System, [employer] Note The pap test is a screening technique, not a diagnostic procedure. ??It is used primarily to screen for squamous cancers and precursor lesions. ??Published studies have shown that it is subject to both false negative and false positive results. ??The pap test should not be used as the sole means to diagnose or exclude pre-malignant and malignant lesions. Interpreted at [facility] ([facility], [facility], [facility], [facility], [facility], [facility], [facility]) 05/03/2017 10:40 AM CDT [facility] [employer] [facility] Other (Cervical/Vagina l) 04/25/2017 12:00 PM CDT 04/26/2017 12:37 PM CDT November Yogesh MCKEON PATHOLOGY/CYTOLOGY [facility] [address] [place] [address], [place] from Last 3 Months or Most Recently Relevant to Health Maintenance Care Teams Barmaid Relationship Specialty Start Date End Date Pcp, No . 04/23/21
--- OUTSIDE RECORDS SUMMARY | 2024-04-19 11:01 | XMS_ITS | Clinical Summary ---
Author Organization [facility] Address [address] [place] [address] Care Team Providers Care Composition Mixer Name Role Phone [facility]- Primary Care Provider Allergies Active Allergy Reactions Criticality Noted Date [...] Problems Problem Noted Date Diagnosed Date 09/30/2018 Encounters Date Type Department Care Team Description 02/25/2024 9:42 PM CDT - 02/26/2024 12:[address] [facility] Emergency Dept [address] [place] [address] Mis Chow, Seizure (H); Alcoholic intoxication without complication (H24); Hypokalemia Discharge Disposition: Home or Self Care 02/25/2024 Travel from Last 3 Months Immunizations Name Administration Dates Next Due DTAP [...] 02/25/2024 9:47 PM CDT Plan of Treatment Health Maintenance Due Date Last Done Comments ADVANCE CARE PLANNING 1993 ANNUAL REVIEW OF HM ORDERS 1993 YEARLY PREVENTIVE VISIT 1993 HIV SCREENING 2008 HEPATITIS C SCREENING 2011 PAP 04/25/2020 04/25/2017 PHQ-2 (once per calendar year) 2023 COVID-19 Vaccine ( season) 2024 INFLUENZA VACCINE (#1) 2024 8, 07/11/2018, 05/10/1997 DTAP/TDAP/TD IMMUNIZATION (11 - Td or Tdap) 07/20/2028 07/20/2018, 07/20/2018, 04/14/2016, Additional history exists HEPATITIS B IMMUNIZATION Completed 994, 05/14/1994, 1993, Additional history exists MENINGITIS IMMUNIZATION Aged Out 03/02/2006 No l onger eligible based on patient's age to complete this topic HPV IMMUNIZATION Completed 11/11/2009, , 02/24/2009 Pneumococcal Vaccine: Pediatrics (0 to 5 Years) and At-Risk Patients (6 to 64 Years) Aged Out No longer eligible based on patient's age to complete this topic RSV MONOCLONAL ANTIBODY Aged Out No l onger eligible based on patient's age to complete [...] CDT EXAM: CT HEAD W/O CONTRAST LOCATION: [facility] DATE: 02/25/2024 INDICATION: Seizure. COMPARISON: None. TECHNIQUE: [...] 02/25/2024 EXAM: CT HEAD W/O CONTRAST LOCATION: [facility] DATE: 02/25/2024 INDICATION: Seizure. COMPARISON: None. TECHNIQUE: [...] 1. Normal head CT. Mis Chow DO [place] [facility] ORDERABLES * HCG QUALitative (blood) (02/25/2024 10:40 PM CDT) hCG Serum Qualitative Negative Negative EDNA 02/25/2024 11:21 PM CDT RH LABORATORY Comment:This test is for scr eening purposes. Results should be interpreted along with the clinical picture. Confirmation testing is available if warranted by ordering [id number], HCG Quantitative . Blood VENOUS LINE / Unknown Venipuncture / Unknown 02/25/2024 10:40 PM CDT 02/25/2024 10:44 PM CDT Mis Chow DO LAB - BLOOD ORDERA BLES RH LABORATORY [facility] Lab [address] Lab (1st floor, no room number) [address] * (ABNORMAL) Glucose by meter (02/25/2024 10:14 PM CDT) GLUCOSE BY METER POCT 133(H) 70 - 99 mg/dL 02/25/2024 10:21 PM CDT LABORATORY POC Comment:Dr/RN Notified Blood, Capillary BLOOD SPECIMEN / Unknown 02/25/2024 10:14 PM CDT 02/25/2024 10:21 PM CDT Mis Chow DO LAB - BEAKER POCT Performing Organization Address City/[facility]/ZIP Co de Phone Number LABORATORY POC [facility] Lab [address] Lab (1st floor, no room number) [address] * EKG 12-lead, tracing only (02/25/2024 10:08 PM CDT) Systolic Blood Pressure mmHg RADIOLOGY RESULTS Diastolic Blood Pressure mmHg RADIOLOGY RESULTS Ventricular Rate 93 BPM RAD IOLOGY RESULTS Atrial Rate 93 BPM RADIOLOG Y RESULTS [place] Interval 148 ms RADIOLOG Y RESULTS QRS Duration 82 ms RADIOLO GY RESULTS QT 380 ms RADIOLOGY RESULTS QTc 472 ms RADIOLOGY RESULTS P [place] 48 degrees RADIOLOGY RESULTS R AXIS 73 degrees RADIOLOGY RESULTS T [place] 39 degrees RADIOLOGY RESULTS Interpretation ECG Sinus [...] LAB - BLOOD ORDERA BLES RH LABORATORY [facility] Lab [address] Lab (1st floor, no room number) [place] [address], [facility] * (ABNORMAL) Comprehensive metabolic panel (02/25/2024 [...] - 20.0 mg/dL 02/25/2024 10:38 PM CDT LABORATORY Creatinine 0.91 0.51 - 0.95 mg/dL [...] Chow DO LAB - BLOOD ORDERA BLES [facility] Care Lab [address] Lab (1st floor, no room number) [place] [phone] [place] [address] * (ABNORMAL) Alcohol level blood (02/25/2024 10:03 PM CDT) Alcohol ethyl 0.11(H) <=0.01 g/dL 02/25/2024 10:38 PM CDT LABORATORY Blood BLOOD SPECIMEN / Unknown Venipuncture / Unknown 02/25/2024 10:03 PM CDT 02/25/2024 10:08 PM CDT Mis Chow DO LAB - BLOOD ORDERA BLES [facility] Acute Care Lab [address] Lab (1st floor, no room number) [place] [address] from Last 3 Months Care Teams Composition Mixer Relationship Specialty Start Date End Date [facility]- [address] [place] [address] PCP - General 10/07/18
--- NOTE | 2024-04-19 11:15 | CRLHL7_ITS ---
For Patients: As a result of the Cures Act, medical imaging exams and procedure reports are released immediately into your electronic medical record. You may view this report before your referring provider. If you have questions, please contact your health care provider. RIGHT BREAST ULTRASOUND LIMITED CLINICAL HISTORY: Right breast abscess follow-up. COMPARISON: 10/27/2023. TECHNIQUE: Real-time ultrasound imaging of RIGHT breast with imaging documentation. FINDINGS: Targeted sonogram RIGHT breast 3 o`clock 5 cm from the nipple performed. In this location, scar tissue is present. No residual fluid collection. No increased vascularity. No solid mass. IMPRESSION: Resolution of previously noted abscess. No recurrent abscess. No suspicious findings. RECOMMENDATIONS: Clinical follow-up. Age-appropriate screening mammography. BI-RADS Category 2: Benign A lay language report of this examination will be provided to the patient. Dictated by Francisco J Childers MD @ 04/19/2024 12:47:10 PM /sp SP/Dictated by: Francisco J Childers MD @ 04/19/2024 12:47:00 PM (Electronically Signed)
== END 2024-04-19 10:57 | disposition home or self-care (01) ==
LOC: US 10:57
PROVIDERS: Visit Provider Surgery
DX: N61.1 Abscess of the breast and nipple (principal)
CPT/HCPCS: 76642